=== PATIENT | male | born 1990 | race Two or more races ===

== ENCOUNTER 2016-08-02 13:50 | Emergency (ER) | payer SELFPAY ==
[~2016-08-02] VITALS: Ht 172.7 cm; Wt 140.6 kg
[2016-08-02 14:04] VITALS: BP 188/116
[2016-08-02] MEDS ORDERED: KETOROLAC TROMETH 60MG/2ML VIAL IM ONE (15:15)
== END 2016-08-02 15:41 | disposition home or self-care (01) ==
LOC: ER 14:12
DX: M54.41 Lumbago with sciatica, right side (principal)
CPT/HCPCS: 96372; 99283; J1885